=== PATIENT | female | born 1985 | race Hispanic/Latino ===

== ENCOUNTER 2017-04-24 16:31 | Emergency (ER) | payer SELFPAY ==
[2017-04-24] MEDS ORDERED: Metoclopramide HCl 10 MG/2 ML VIAL ONE (18:55)
[2017-04-24] MEDS ORDERED: diphenhydrAMINE 50 MG/ML VIAL ONE (18:55)
== END 2017-04-24 20:41 | disposition home or self-care (01) ==
LOC: ERS 16:31
DX: R51 Headache (principal); J45.909 Unspecified asthma, uncomplicated; F31.9 Bipolar disorder, unspecified; Z79.899 Other long term (current) drug therapy
CPT/HCPCS: 96365; 96375; J1200; J2765

== ENCOUNTER 2017-05-02 19:53 | Emergency (ER) | payer SELFPAY ==
[2017-05-02 21:19] LABS: Bilirubin Negative (Negative); Blood, Urine Negative (Negative); Clarity CLEAR (Clear); Glucose, Urine (Dipstick) Negative (Negative); Leukocyte Negative (Negative); Nitrite Negative (Negative); Protein, Urine (Dipstick) Negative (Neg-Trace); Specific Gravity, Urine 1.028 (1.002-1.036); pH, Urine 6.5 (5.0-9.0)
[2017-05-02 21:20] LABS: Pregnancy Test - Urine (BHCG) Negative (Negative); Pregu Control Background? CLEAR/WHITE (CLR/WHITE); Pregu Control Bar Appear? YES (CONTROL BAR); Specific Gravity 1.028 (1.002-1.036)
== END 2017-05-02 22:01 | disposition home or self-care (01) ==
LOC: ERS 19:53
DX: B34.9 Viral infection, unspecified (principal); J45.909 Unspecified asthma, uncomplicated; F31.9 Bipolar disorder, unspecified; F60.3 Borderline personality disorder; Z79.51 Long term (current) use of inhaled steroids
CPT/HCPCS: 81003; 81025; 99283